=== PATIENT | male | born 1990 | race Caucasian/White ===

== ENCOUNTER 2016-12-05 09:50 | Emergency (ER) | payer BC, OTHER ==
[~2016-12-05] VITALS: Wt 84.1 kg
[2016-12-05] MEDS ORDERED: KETOROLAC 30 MG INJ IV STA (10:53)
[2016-12-05] MEDS ORDERED: SODIUM CHLORIDE 0.9% 1L BAG IV* STA (10:57)
[2016-12-05] MEDS ORDERED: SOD CHLORIDE 0.9% 1,000 ML IV ONE (11:00)
[2016-12-05] MEDS ORDERED: BACITRACIN 0.9 GM OINT TOP ONE (11:00)
[2016-12-05] MEDS ORDERED: LIDOCAINE 4% CR TOP ONE (11:00)
[2016-12-05] MEDS ORDERED: VANCOMYCIN 1 GM (PMX) 250 ML IVPB SCH (11:00)
[2016-12-05] MEDS ORDERED: CEFTRIAXONE 1 GM/50 ML (PMX) 50 ML IVPB ONE (11:00)
--- NOTE | 2016-12-05 11:20 | RADRPT ---
PROCEDURE: Chest Radiograph. CLINICAL INDICATION: Sepsis TECHNIQUE: Single frontal chest radiograph. COMPARISON: None available FINDINGS: The cardiomediastinal silhouette is within normal limits. No infiltrate or effusion is seen. Th e bones are intact. IMPRESSION: 1. Unremarkable chest radiograph. RPTAT: KK .Hugh Galvan MD, Date Time Electronically viewed and signed by .Hugh Galvan MD, on 12/05/2016 11:20 .B/
[2016-12-05] MEDS ORDERED: LIDOCAINE 1% (MPF) 5 ML VIAL SC ONE ×2 (11:30)
[2016-12-05 12:38] LABS: ADD SCAN DIFF NO
[2016-12-05 12:49] LABS: BASOPHILS % 0.2 % (0.0-2.0); HEMATOCRIT 34.4 % (42.0-52.0); HEMOGLOBIN 12.1 g/dl (14.0-18.0); LYMPHOCYTES # 1.6 10^3/ul (0.8-2.9); LYMPHOCYTES % 23.9 % (15.0-51.0); MEAN CORPUSCULAR HEMOGLOBIN 29.2 pg (29.0-33.0); MEAN CORPUSCULAR HGB CONC 35.2 g/dl (32.0-37.0); MEAN CORPUSCULAR VOLUME 82.9 fl (82.0-101.0); MONOCYTE # 0.7 10^3/ul (0.3-0.9); MONOCYTES % 10.8 % (0.0-11.0); NEUTROPHIL # 4.2 10^3/ul (1.6-7.5); NEUTROPHILS % 64.6 % (39.0-77.0); PLATELET COUNT 207 10^3/UL (140-415); RED BLOOD COUNT 4.15 10^6/ul (4.70-6.10); RED CELL DISTRIBUTION WIDTH 11.8 % (11.5-14.5); WHITE BLOOD COUNT 6.5 10^3/ul (4.8-10.8)
[2016-12-05 13:01] LABS: ALANINE AMINOTRANSFERASE 41 IU/L (13-69); ALBUMIN 4.2 g/dl (3.3-4.9); ALBUMIN/GLOBULIN RATIO 0.97; ALKALINE PHOSPHATASE 49 IU/L (42-121); ANION GAP 18 (8-16); ASPARTATE AMINO TRANSFERASE 36 IU/L (15-46); BILIRUBIN,INDIRECT 0.6 mg/dl (0-1.1); BILIRUBIN,TOTAL 0.6 mg/dl (0.2-1.3); BLOOD UREA NITROGEN 12 mg/dl (7-20); CALCIUM 9.3 mg/dl (8.4-10.2); CARBON DIOXIDE 27 mmol/L (21-31); CHLORIDE 101 mmol/L (97-110); CREATININE 0.95 mg/dl (0.61-1.24); GLUCOSE 105 mg/dl (70-220); POTASSIUM 4.1 mmol/L (3.5-5.1); SODIUM 142 mmol/L (135-144); TOTAL PROTEIN 8.5 g/dl (6.1-8.1)
[2016-12-05 13:13] LABS: TROPONIN-I < 0.012 ng/ml (0.00-0.12)
--- NOTE | 2016-12-05 13:19 | RADRPT ---
PROCEDURE: US bilateral upper extremity veins. CLINICAL INDICATION: Bilateral upper extremity pain and swelling. TECHNIQUE: Multiple longitudinal and transverse images of the bilateral upper extremity venous no e was obtained with gibbs scale and color Doppler imaging. COMPARISON: None available FINDINGS: The bilateral internal jugular, subclavian, axillary, brachial, basilic, radial, and ulnar veins are patent. There is normal flow with augmentation and compressibility throughout. There is no thrombu s or occlusion. The right cephalic vein in the upper arm is thrombosed with lack of flow and lack of compressibility . The right cephalic vein in the forearm demonstrates normal flow and compressibility. The left cephalic vein is patent throughout. There is a heterogeneous hypoechoic mass in the left wrist region measuring 1.1 x 2.3 x 3.6 cm. IMPRESSION: 1. Thrombosis of the right cephalic vein in the upper arm. 2. Otherwise normal venous system of both upper extremities. 3. Heterogeneous hypoechoic mass in the left wrist region measuring 1.1 x 2.3 x 3.6 cm. This may be due to a solid mass, complex cyst, hematoma, or abscess. RPTAT: QQ .Sav Pike MD, Date Time Electronically viewed and signed by .Sav Pike MD, on 12/05/2016 13:18 .R/
--- NOTE | 2016-12-05 13:38 | RADRPT ---
PROCEDURE: Forearm radiograph series. CLINICAL INDICATION: Right upper extremity swelling TECHNIQUE: AP and lateral views of the right forearm were obtained. COMPARISON: No prior studies are available for comparison. FINDINGS: There is normal mineralization and alignment of the bones of the right forearm. There is no evidenc e of acute fracture or dislocation. Suboptimally visualized joints appear within normal limits. Th ere is diffuse soft tissue swelling. There is apparent skin defect on the dorsal aspect of the mid forearm. IMPRESSION: 1. Soft tissue swelling and skin defect without evidence of underlying osseous pathology. RPTAT: KK .Hugh Galvan MD, MD Date Time Electronically viewed and signed by .Hugh Galvan MD, MD on 12/05/2016 13:38 .B/
--- NOTE | 2016-12-05 13:39 | RADRPT ---
PROCEDURE: Forearm radiograph series. CLINICAL INDICATION: Left forearm pain and swelling TECHNIQUE: AP and lateral views of the left forearm were obtained. COMPARISON: No prior studies are available for comparison. FINDINGS: There is normal mineralization and alignment of the bones of the left forearm. There is no evidence of acute fracture or dislocation. Suboptimally visualized joints appear within normal limits. The re is diffuse soft tissue swelling with more focal soft tissue swelling on the ventral aspect of the distal forearm.. IMPRESSION: 1. Soft tissue swelling without evidence of underlying osseous pathology. RPTAT: KK .Hugh Galvan MD, MD Date Time Electronically viewed and signed by .Hugh Galvan MD, on 12/05/2016 13:38 .B/
--- NOTE | 2016-12-05 14:07 | ERD ---
ER Documentation Chief Complaint Date/Time DATE: 12/05/16 Chief Complaint Abscesses to bilateral arms HPI The patient is a 26-year-old male with a history of heroin and methamphetamine abuse who presents to the Emergency Department with complaint of swelling and abscesses to his upper extremities. The patient reports that he recently relapsed, and over the past 2 months has been shooting up daily. He admits to regular use of large amounts of heroin and crystal meth, which he states has led to the development of multiple large abscesses to his upper extremities, which he picks at. He notes a history of similar symptoms in the past, at which time he developed significant cellulitis to the upper extremities, and was ultimately hospitalized at [facility] for IV antibiotics and I&D procedures by general surgery. These abscesses too, followed excessive IV drug use. Since, he became clean for 2 years, but ultimately relapsed several months ago. The patient notes that since onset of his abscesses two months ago, he has developed increasing swelling, warmth, erythema and tenderness to his upper extremities. He states that several of the abscess have begun to spontaneously drain, others he "popped". His last use of illicit drugs was last night, as he "didn't want to seem too messed up" upon presentation to the ED today. The patient states that over the past week he has been experiencing intermittent fevers, chills, nausea, and vomiting. He has noted increased swelling and spreading redness to the upper extremities. Otherwise, denies any numbness, paresthesias or weakness of the distal extremities. Denies restricted range of motion. Due to patient's worsening symptoms and presentation, his friends coaxed him into coming to the ED today for evaluation. ROS All systems reviewed and are negative except as per history of present illness. Medications Home Meds No Active Prescriptions or Reported Meds Allergies Allergies: Coded Allergies: No Known Allergy (Unverified , 12/05/16) PMhx/Soc History of Surgery: Yes (RIGHT ORCHIECTOMY) Hx Neurological Disorder: Yes ( PER PATIENT, HE HAD SEIZURES BEFORE) Hx Respiratory Disorders: No Hx Cardiac Disorders: No Hx Psychiatric Problems: No Hx Miscellaneous Medical Probl: Yes ( PER PT,HE HAS CLOT ON RIGHT ARM) Hx Substance Use: Yes Smoking Status: Never smoker Physical Exam Vitals Vital Signs Date Time Temp Pulse Resp B/P Pulse Ox O2 Delivery O2 Flow Rate FiO2 12/05/16 12:23 Nasal Cannula 12/05/16 09:55 98.1 118 20 129/78 97 Physical Exam GENERAL: Well-developed, well-nourished, in no acute distress. HEENT: Head is normocephalic, atraumatic. No scleral pallor or icterus. Pupils equal, round and reactive to light. Extraocular movements intact. Conjunctiva pink. Moist mucous membranes. Clear oropharynx. NECK: Supple. Full range of motion. RESPIRATORY: Lungs are clear to auscultation bilaterally. Equal breath sounds. Normal expiratory effort. CARDIOVASCULAR: Tachycardic. Regular rhythm. S1 and S2 normal. GASTROINTESTINAL: Abdomen is soft, nontender, and nondistended. No guarding, no rebound tenderness. Normal bowel sounds. BACK: No midline tenderness. Normal range of motion. EXTREMITIES: No clubbing or cyanosis. Edema to bilateral upper extremities/ forearms/hands, right greater than left. Multiple skin lesions, scabs, abscesses noted. Normal skin perfusion. Full range of motion of both the upper and lower extremities bilaterally. Muscle tone is normal. Compartments are soft. Distal pulses are palpable, 2+ bilaterally. Capillary refill is less than 2 seconds. NEUROLOGIC: The patient is alert, awake, and oriented x 3. No focal neurologic deficits. Motor and sensation grossly intact. INTEGUMENT: Multiple large abscesses, some spontaneously drainage, some with granulation tissue, some intact and indurated to bilateral upper extremities. Surrounding erythema, warmth, tenderness noted. No crepitus. No bleeding. No current lymphatic streaking. No bullae, vesicles, ulcerations. PSYCHIATRIC: Appropriate; Cooperative. Result Diagram: 12/05/16 1230 12/05/16 1230 Results 24 hrs Laboratory Tests Test 12/05/16 12:30 White Blood Count 6.510^3/ul Red Blood Count 4.1510^6/ul Hemoglobin 12.1g/dl Hematocrit 34.4% Mean Corpuscular Volume 82.9fl Mean Corpuscular Hemoglobin 29.2pg Mean Corpuscular Hemoglobin Concent 35.2g/dl Red Cell Distribution Width 11.8% Platelet Count 77586^3/UL Mean Platelet Volume 10.0fl Neutrophils % 64.6% Lymphocytes % 23.9% Monocytes % 10.8% Eosinophils % 0.0% Basophils % 0.2% Neutrophils # 4.210^3/ul Lymphocytes # 1.610^3/ul Monocytes # 0.710^3/ul Eosinophils # 0.010^3/ul Basophils # 0.010^3/ul Nucleated Red Blood Cells # 0.010^3/ul Sodium Level 142mmol/L Potassium Level 4.1mmol/L Chloride Level 101mmol/L Carbon Dioxide Level 27mmol/L Anion Gap 18 Blood Urea Nitrogen 12mg/dl Creatinine 0.95mg/dl Glucose Level 105mg/dl Lactic Acid Level 1.1mmol/L Calcium Level 9.3mg/dl Total Bilirubin 0.6mg/dl Direct Bilirubin 0.00mg/dl Indirect Bilirubin 0.6mg/dl Aspartate Amino Transf (AST/SGOT) 36IU/L Alanine Aminotransferase (ALT/SGPT) 41IU/L Alkaline Phosphatase 49IU/L Troponin I < 0.012ng/ml Total Protein 8.5g/dl Albumin 4.2g/dl Globulin 4.30g/dl Albumin/Globulin Ratio 0.97 Current Medications Medications (Trade) Dose Ordered Sig/Elizabeth Route PRN Reason Start Time Stop Time Status Last Admin Dose Admin Lidocaine 1 applic 1 applic ONCE ONCE TOP 12/05/16 11:00 12/05/16 11:01 DC Vancomycin HCl 250 ml @ 125 mls/hr ONCE IVPB 12/05/16 11:00 12/05/16 12:59 DC Ceftriaxone Sodium (Rocephin) 50 ml @ 100 mls/hr ONCE ONCE IVPB 12/05/16 11:00 12/05/16 11:29 DC Ketorolac Tromethamine 30 mg 30 mg ONCE STAT IV 12/05/16 10:53 12/05/16 10:56 DC Sodium Chloride (NS) 1,000 ml @ 1,000 mls/hr Q1H ONCE IV 12/05/16 11:00 12/05/16 11:59 DC Bacitracin (Bacitracin Oint (Ud)) 1 applic ONCE ONCE TOP 12/05/16 11:00 12/05/16 11:01 DC Sodium Chloride (NS) 2,610 ml BOLUS OVER 2 HOURS STAT IV* 12/05/16 10:57 12/05/16 10:59 DC Lidocaine (Xylocaine 1% (Mpf)) 5 ml ONCE ONCE SC 12/05/16 11:30 7/20/17 11:34 DC Lidocaine (Xylocaine 1% (Mpf)) 5 ml ONCE ONCE SC 12/05/16 11:30 12/05/16 11:34 DC Procedures/MDM DIAGNOSTIC TESTS AND INTERPRETATION: EKG Reviewed and Interpreted by: Dr. Vasquez EKG Interpretation: Sinus tachycardia. Rate 101 bpm. Normal axis. No ST-segment elevations. No ectopy. PROCEDURE: Chest Radiograph. CLINICAL INDICATION: Sepsis TECHNIQUE: Single frontal chest radiograph. COMPARISON: None available FINDINGS:The cardiomediastinal silhouette is within normal limits. No infiltrate or effusion is seen. The bones are intact. IMPRESSION: 1. Unremarkable chest radiograph. .Hugh Galvan MD, MD Date Time Electronically viewed and signed by .Hugh Galvan MD, MD on 2016 11:20 PROCEDURE: US bilateral upper extremity veins. CLINICAL INDICATION: Bilateral upper extremity pain and swelling. TECHNIQUE: Multiple longitudinal and transverse images of the bilateral upper extremity venous tree was obtained with gibbs scale and color Doppler imaging. COMPARISON: None available FINDINGS: The bilateral internal jugular, subclavian, axillary, brachial, basilic, radial , and ulnar veins are patent. There is normal flow with augmentation and compressibility throughout. There is no thrombus or occlusion. The right cephalic vein in the upper arm is thrombosed with lack of flow and lack of compressibility. The right cephalic vein in the forearm demonstrates normal flow and compressibility. The left cephalic vein is patent throughout. There is a heterogeneous hypoechoic mass in the left wrist region measuring 1.1 x 2.3 x 3.6 cm. IMPRESSION: 1. Thrombosis of the right cephalic vein in the upper arm. 2. Otherwise normal venous system of both upper extremities. 3. Heterogeneous hypoechoic mass in the left wrist region measuring 1.1 x 2.3 x 3.6 cm. This may be due to a solid mass, complex cyst, hematoma, or abscess. .Sav Pike MD, MD Date Time Electronically viewed and signed by .Sav Pike MD, MD on 12/05/2016 13:18 PROCEDURE: Forearm radiograph series. CLINICAL INDICATION: Right upper extremity swelling TECHNIQUE: AP and lateral views of the right forearm were obtained. COMPARISON: No prior studies are available for comparison. FINDINGS: There is normal mineralization and alignment of the bones of the right forearm. There is no evidence of acute fracture or dislocation. Suboptimally visualized joints appear within normal limits. There is diffuse soft tissue swelling. There is apparent skin defect on the dorsal aspect of the mid forearm. IMPRESSION: Soft tissue swelling and skin defect without evidence of underlying osseous pathology. .Hugh Galvan MD, MD Date Time Electronically viewed and signed by .Hugh Galvan MD, MD on 2016 13:38 PROCEDURE: Forearm radiograph series. CLINICAL INDICATION: Left forearm pain and swelling TECHNIQUE: AP and lateral views of the left forearm were obtained. COMPARISON: No prior studies are available for comparison. FINDINGS:There is normal mineralization and alignment of the bones of the left forearm. There is no evidence of acute fracture or dislocation. Suboptimally visualized joints appear within normal limits. There is diffuse soft tissue swelling with more focal soft tissue swelling on the ventral aspect of the distal forearm.. IMPRESSION: Soft tissue swelling without evidence of underlying osseous pathology. .Hugh Galvan MD, MD Date Time Electronically viewed and signed by .Hugh Galvan MD, MD on 2016 13:38 EMERGENCY DEPARTMENT COURSE: The patient's case was reviewed and discussed with ED supervising physician, Dr. Vasquez, who agrees with the plan of care including labs, treatment and advanced imaging as appropriate. The patient was evaluated bedside by Dr. Vasquez, who recommends IV Vancomycin and Rocephin, US Venous Duplex of the upper extremities bilaterally, x-rays of the forearms bilaterally and septic work-up (given presentation and tachycardia). Further, Dr. Vasquez recommends admission. Dr. Vasquez discussed patient case with hospitalist on-call for patient's insurance plan, who accepted care of patient to Med/Surg. IV access noted to be difficult in the ED. PICC line ordered, but pending. EJ to be attempted by ED RN, but patient refused. Patient english- cultured. Toradol, fluids, IV antibiotics ordered for the patient, but unfortunately, the patient decided to refuse any treatment and wanted to leave against medical advice. Discussed at least giving the patient a dose of IM antibiotics in the ED and providing the patient with an rx for oral antibiotics to be taken, but patient refused, insisting that he wants to leave against medical advice. Risks of leaving discussed at length. Patient understands risks , including , permanent disability, amputation, thrombus, embolus, gangrene , necrosis, and still decided to leave. MEDICAL DECISION MAKING: This is a 26-year-old male with multiple large abscess to his upper extremities, with associated swelling and spreading cellulitis. Several of the patient's abscesses have already begun to spontaneously drain, with presence of granulation tissue, but also development of surrounding warmth , swelling, erythema and tenderness. The patient also had a few intact, somewhat indurated abscesses to both upper extremities as well. Additionally, patient was also noted to have a right cephalic vein thrombus. Sepsis protocol initiated. Patient english-cultured, and empiric antibiotics and fluids ordered. However, the patient refused further evaluation and treatment and decided to leave against medical advice. The patient had no altered level of consciousness and no signs of acute intoxication. The patient's judgment capabilities were intact. The patient understands their current condition and treatment and was able to communicate their choices clearly. The patient was heavily counseled that by leaving AMA and refusing further evaluation and treatment, they are putting themselves at risk for permanent disability, necrosis, gangrene, amputation, thrombus, embolus, sepsis, bacteremia, , among other terrible complications. The importance of staying in this medical facility for further management was explained at length. The patient was told that by leaving they are presenting themselves with serious and immediate health risks that may ultimately result in health disabilities, sepsis, and . Despite my many efforts to convince the patient to stay, the patient still decided to leave against medical advice. He was instructed to return to the Emergency Department as soon as possible for further evaluation and management. Again, signs of deteriorating or progressing condition were discussed with the patient at length, and the patient was given strict return precautions for returning to seek medical advice. They were advised that they may return at any time for additional treatment. The patient has the medical decision making capacity and understands the potential consequences of leaving AMA. I answered all the patient's questions and offered him care at any time if he chooses to return. I have also recommended that he follow up with a primary care provider within 24 hours for further evaluation and care. Departure Diagnosis: Primary Impression: Skin abscess Site of cutaneous abscess: extremity Site of cutaneous abscess of extremity: upper extremity Laterality: unspecified laterality Qualified Code: L02.419 - Cutaneous abscess of upper extremity, unspecified laterality Additional Impressions: Cellulitis Site of cellulitis: extremity Site of cellulitis of extremity: upper extremity Laterality: unspecified laterality Qualified Code: L03.119 - Cellulitis of upper extremity, unspecified laterality Acute thrombosis of right cephalic vein Methamphetamine abuse Heroin abuse Condition: Serious Patient Instructions: Abscess Drainage, [place] Form- 1, Cellulitis Additional Instructions: You are leaving AGAINST MEDICAL ADVICE. By doing so you're placing yourself at risk for permanent disability, sepsis, permanent embolus, worsening infection and . Please return to the emergency Department as soon as possible for further evaluation and management. KIM HELTON PA-C Dec 05, 2016 14:07
== END 2016-12-05 14:08 | disposition left against medical advice (07) ==
LOC: FTE 09:50 → E/R 14:08
DX: L02.413 Cutaneous abscess of right upper limb (principal); L02.414 Cutaneous abscess of left upper limb; L03.113 Cellulitis of right upper limb; L03.114 Cellulitis of left upper limb; I82.611 Acute embolism and thrombosis of superficial veins of right upper extremity; F15.10 Other stimulant abuse, uncomplicated; F11.10 Opioid abuse, uncomplicated
CPT/HCPCS: 71010; 73090; 80053; 83605; 84484; 85025; 87040; 93005; 93970; J7030; Z7502

== ENCOUNTER 2016-12-14 03:58 | Emergency (ER) | payer OTHER ==
[~2016-12-14] VITALS: Ht 182.9 cm; Wt 87.5 kg
[2016-12-14 04:04] VITALS: Ht 182.9 cm; Wt 87.5 kg
--- NOTE | 2016-12-14 04:36 | ERD ---
ER Documentation Chief Complaint Date/Time DATE: 12/14/16 TIME: 04:35 Chief Complaint swelling/abscess both arms, current iv drug user HPI Patient is a 26-year-old male who is an IV drug user and states he last used today. He is here because he has an abscess on his right dorsal hand. He has multiple areas of cellulitis on his bilateral upper extremities and is currently being treated with antibiotics were given to him by his primary care doctor. He states that he was here last week and was told he had a blood clot in his right upper extremities and he was concerned and at that time he left AGAINST MEDICAL ADVICE but he came back here because he was worried. ROS All systems reviewed and are negative except as per history of present illness. Medications Home Meds No Active Prescriptions or Reported Meds Allergies Allergies: Coded Allergies: No Known Allergy (Unverified , 12/14/16) PMhx/Soc History of Surgery: Yes (RIGHT ORCHIECTOMY) Hx Neurological Disorder: Yes ( PER PATIENT, HE HAD SEIZURES BEFORE) Hx Respiratory Disorders: No Hx Cardiac Disorders: No Hx Psychiatric Problems: No Hx Miscellaneous Medical Probl: Yes ( PER PT,HE HAS CLOT ON RIGHT ARM) Hx Substance Use: Yes (HEROIN) FmHx Family History: No diabetes Physical Exam Vitals Vital Signs Date Time Temp Pulse Resp B/P Pulse Ox O2 Delivery O2 Flow Rate FiO2 12/14/16 04:04 97.8 81 20 118/88 100 Physical Exam INITIAL VITAL SIGNS: Reviewed by me GENERAL: Awake, alert and oriented x 4, well appearing, nontoxic, speaking in full sentences. No acute distress HEAD: Atraumatic EYES: EOMI. PERRL. NECK: Supple. No masses. Full range of motion. No meningismus. No midline tenderness. RESPIRATORY: Clear to auscultation bilaterally. Symmetric chest wall rise. No wheezing or rales. No accessory muscle use. CV: Regular rate and rhythm. No murmurs, rubs, or gallops. EXTREMITIES: No clubbing or cyanosis. No edema. Moving all extremities normally. BACK: No midline tenderness to palpation. No step-offs. SKIN: Multiple large abscesses, some spontaneously drainage, some with granulation tissue, some intact and indurated to bilateral upper extremities. Surrounding erythema, warmth, tenderness noted. No crepitus. No bleeding. No current lymphatic streaking. No bullae, vesicles, ulcerations. Right hand dorsal surface has abscess approximately 2 cm in diameter with fluctuance and tenderness to palpation and warmth Procedures/MDM Abscess Incision and Drainage with irrigation by me: Location: Right hand dorsal surface Anesthesia: [Local 1% Lidocaine] Technique: [Irrigated. Disrupted loculations w/ instrumentation ] Packing: [None] Complications: [Neurovascularly intact post procedure] 48 hour wound check. Scar minimization instructions given. [ED Ultrasound: Abscess localized by me using concurrent ultrasound guidance and assessment of the anatomy. Real time image archived in the medical record confirms anatomy.] Patient's skin symptoms have stabilized while they have been evaluated in the department and are appropriate for outpatient care and work up. Exam and w/u not consistent w/ sepsis, deep space infection, or foreign body. Patient was also concerned about possible right upper extremity DVT however I reviewed his ultrasound from last week and he has a cephalic thrombosis. I reviewed this with Dr. Montes who explained that this is a superficial vein and therefore it is not a DVT. I counseled the patient on this. She already has appropriate antibiotics for his cellulitis/abscess. Patient counseled regarding my diagnostic impression and care plan. Prior to discharge all questions answered. Pt agrees with treatment plan and understands strict return precautions. Pt is instructed to follow up with primary care provider within 24- 48 hours. Precautionary instructions provided including instructions to return to the ER if not improving or for any worsening or changing symptoms or concerns. Departure Diagnosis: Primary Impression: Abscess Additional Impressions: Heroin abuse Acute thrombosis of right cephalic vein Condition: Stable Patient Instructions: Abscess, Incision And Drainage Additional Instructions: Call your primary care doctor TOMORROW for an appointment during the next 1-2 days.See the doctor sooner or return here if your condition worsens before your appointment time. JALEEL JUDGE PA-C Dec 14, 2016 04:36
[2016-12-14 04:48] VITALS: BP 125/88; PULSE 88; RESP 20
== END 2016-12-14 04:51 | disposition home or self-care (01) ==
LOC: FTE 03:58
DX: L02.511 Cutaneous abscess of right hand (principal); F11.10 Opioid abuse, uncomplicated; I82.601 Acute embolism and thrombosis of unspecified veins of right upper extremity

== ENCOUNTER 2017-01-09 22:45 | Emergency (ER) | payer OTHER ==
[~2017-01-09] VITALS: Ht 182.9 cm; Wt 80.0 kg
[2017-01-09 22:50] VITALS: Ht 182.9 cm; Wt 80.0 kg
--- NOTE | 2017-01-09 23:08 | ERA ---
ER Documentation Chief Complaint Date/Time DATE: 01/09/17 TIME: 23:07 Chief Complaint altered mental status HPI The patient is a 26-year-old male, presenting to the ER because of altered mental status. He was dropped off by his friend to the ER because he took 4 tab of Klonopin 2 mg prior to arrival. He is somnolent but arousable, drooling. He was admitted previously for benzodiazepine withdrawal. He denies headache, neck pain, chest pain, dyspnea, abdominal pain, vomiting, dysuria, diarrhea. He smokes and drinks and does illicit drug Past medical history: History of benzodiazepine addiction Past surgical history: Right orchiectomy ROS All systems reviewed and are negative except as per history of present illness. Medications Home Meds Unable to Obtain Active Prescriptions or Reported Meds Allergies Allergies: Coded Allergies: No Known Allergy (Unverified , 12/14/16) PMhx/Soc History of Surgery: Yes (RIGHT ORCHIECTOMY) Hx Neurological Disorder: Yes ( PER PATIENT, HE HAD SEIZURES BEFORE) Hx Respiratory Disorders: No Hx Cardiac Disorders: No Hx Psychiatric Problems: No Hx Miscellaneous Medical Probl: Yes ( PER PT,HE HAS CLOT ON RIGHT ARM) Hx Substance Use: Yes (HEROIN) Physical Exam Vitals Vital Signs Date Time Temp Pulse Resp B/P Pulse Ox O2 Delivery O2 Flow Rate FiO2 01/10/17 03:30 97.5 53 20 123/83 99 Room Air 01/10/17 01:25 97.5 53 20 129/85 100 Room Air 01/10/17 00:16 55 20 122/86 100 Room Air 01/09/17 22:50 97.5 85 20 126/84 99 Physical Exam Const: No acute distress. Head: Atraumatic. Eyes: Normal Conjunctiva. ENT: Normal External Ears, Nose and Mouth. Neck: Full range of motion. No meningismus. Resp: Clear to auscultation bilaterally. Cardio: Regular rate and rhythm. Abd: Soft, non distended, normal bowel sounds, non tender. Skin: No petechiae or rashes. Back: No midline or flank tenderness. Ext: No cyanosis, or edema. Neur: Awake and alert. No focal deficit Psych: Somnolent Result Diagram: 01/09/17 2335 01/09/17 0456 Results 24 hrs Laboratory Tests Test 01/09/17 23:00 01/09/17 23:20 01/09/17 23:35 Urine Color YELLOW Urine Clarity CLEAR Urine pH 6.0 Urine Specific [place] 1.013 Urine Ketones NEGATIVEmg/dL Urine Nitrite NEGATIVEmg/dL Urine Bilirubin NEGATIVEmg/dL Urine Urobilinogen NEGATIVEmg/dL Urine Leukocyte Esterase NEGATIVELeu/ul Urine Hemoglobin NEGATIVEmg/dL Urine Glucose NEGATIVEmg/dL Urine Total Protein NEGATIVEmg/dl Urine Opiates Screen Positive Urine Barbiturates Negative Urine Amphetamines Screen POSITIVE Urine Benzodiazepines Screen Positive Urine Cocaine Screen Negative Urine Cannabinoids Negative White Blood Count 7.010^3/ul Red Blood Count 4.5010^6/ul Hemoglobin 12.7g/dl Hematocrit 37.2% Mean Corpuscular Volume 82.7fl Mean Corpuscular Hemoglobin 28.2pg Mean Corpuscular Hemoglobin Concent 34.1g/dl Red Cell Distribution Width 12.2% Platelet Count 40095^3/UL Mean Platelet Volume 10.2fl Neutrophils % 68.6% Lymphocytes % 23.1% Monocytes % 7.9% Eosinophils % 0.0% Basophils % 0.1% Nucleated Red Blood Cells % 0.0/100WBC Neutrophils # (Manual) 4.810^3/ul Lymphocytes # 1.610^3/ul Monocytes # 0.610^3/ul Eosinophils # 0.010^3/ul Basophils # 0.010^3/ul Nucleated Red Blood Cells # 0.010^3/ul Sodium Level 142mmol/L Potassium Level 3.6mmol/L Chloride Level 101mmol/L Carbon Dioxide Level 28mmol/L Anion Gap 17 Blood Urea Nitrogen 12mg/dl Creatinine 0.78mg/dl Glucose Level 93mg/dl Calcium Level 9.6mg/dl Total Bilirubin 0.2mg/dl Direct Bilirubin 0.00mg/dl Indirect Bilirubin 0.2mg/dl Aspartate Amino Transf (AST/SGOT) 35IU/L Alanine Aminotransferase (ALT/SGPT) 57IU/L Alkaline Phosphatase 56IU/L Total Protein 7.9g/dl Albumin 3.9g/dl Globulin 4.00g/dl Albumin/Globulin Ratio 0.97 Salicylates Level < 1.0mg/dl Acetaminophen Level < 10.0ug/ml Ethyl Alcohol Level < 10.0mg/dl Current Medications Medications (Trade) Dose Ordered Sig/Elizabeth Route PRN Reason Start Time Stop Time Status Last Admin Dose Admin Sodium Chloride (NS) 1,000 ml @ 1,000 mls/hr Q1H STAT IV 01/09/17 23:13 01/10/17 00:12 DC 01/09/17 23:30 Ondansetron HCl (Zofran Inj) 4 mg ONCE STAT IV 01/09/17 23:13 01/09/17 23:17 DC 01/09/17 23:30 Naloxone HCl (Narcan) 2 mg ONCE ONCE IV 01/09/17 23:30 01/09/17 23:31 DC 01/09/17 23:29 Lorazepam 2 mg 2 mg Q6H PRN IV agitation 01/10/17 04:30 Multivitamins/ Thiamine HCl/ Folic Acid/Sodium Chloride (Mvi Adult/ Vitamin B1/Folic Acid/NS) 1,011.2 ml @ 125 mls/ hr DAILY@09 IVPB 01/10/17 09:00 Ondansetron HCl (Zofran Inj) 4 mg Q6H PRN IV NAUSEA AND/OR VOMITING 01/10/17 04:30 Famotidine (Pepcid Iv) 20 mg BID IV 01/10/17 09:00 Procedures/[place] [address] Radiology Main Line: [phone] DIAGNOSTIC IMAGING REPORT Patient: GERSON YANES : 1990 Age: 26 Sex: M MR #: [id number] DOS: 01/09/17 2313 Ordering MD: THOMAS WOODS MD Location: E/R Room/Bed: PROCEDURE: XR Chest. CLINICAL INDICATION: Altered mental status TECHNIQUE: AP Portable chest. COMPARISON: 12/05/2016 FINDINGS: The cardiomediastinal silhouette is normal. The lungs are clear. The osseous structures are unremarkable. IMPRESSION: No acute findings. RPTAT: HIKT .Shiva Serna MD, MD Date Time Electronically viewed and signed by .Shiva Serna MD, on 01/10/2017 01:02 .T/ CC: THOMAS WOODS MD [place] [address] Radiology Main Line: [phone] DIAGNOSTIC IMAGING REPORT Patient: GERSON YANES : 1990 Age: 26 Sex: M MR #: [id number] DOS: 01/10/17 0217 Ordering MD: THOMAS WOODS MD Location: E/R Room/Bed: PROCEDURE: CT Brain without contrast. CLINICAL INDICATION: Altered level of consciousness TECHNIQUE: Axial images from the skull base through the vertex without IV contrast. Multiplanar reformatted images were made. Images were reviewed on a PACS workstation. The CTDIvol is 45.01 mGy and the DLP is 720.23 mGycm. One or more of the following dose reduction techniques were used: automated exposure control, adjustment of the mA and/or kV according to patient size, or use of iterative reconstruction technique. COMPARISON: None. FINDINGS: The ventricles and cisterns are normal for age. There is no evidence for territorial infarction or intracranial hemorrhage. No mass or midline shift is seen. No extra-axial fluid collection is seen. The visualized paranasal sinuses and mastoids are clear. IMPRESSION: No definite acute intracranial abnormality. RPTAT: HLBE Physician Zeus Date Time Electronically viewed and signed by Samreen Johnson Physician on 01/10/2017 03 :19 LE/ CC: THOMAS WOODS MD MEDICAL MAKING DECISION: The patient is a 26-year-old male, presenting with acute benzodiazepine abuse, opioid abuse. He was treated with Narcan 2 mg IV for acute opioid abuse, 1 L normal saline for acute dehydration, Zofran 4 mg IV for nausea with good response. The differential diagnoses considered include but are not limited to medication non-compliance, alcohol intoxication or withdrawal, drug intoxication or withdrawal, endocrine disorder, trauma, CVA, tumor, metabolic encephalopathy, septic encephalopathy. Departure Diagnosis: Primary Impression: Benzodiazepine abuse Additional Impressions: Opioid abuse Anemia Condition: Stable Comments I discussed the findings with the patient. I discussed the patient with the on- call hospitalist Dr. Flowers at 2:20 AM who was made aware of the lab, the treatment , the patient condition. The patient is admitted to telemetry for 24 hour observation The patient later felt better, able to ambulate independently without any difficulty, signed out AGAINST MEDICAL ADVICE The patient signed out AGAINST MEDICAL ADVICE. Risks, benefits, alternatives were explained to the patient. Risks include but not limited to and permanent disability The patient's blood pressure was elevated (>120/80) but appears stable without evidence of hypertension emergency or urgency. The patient was counseled about the risks of hypertension and urged to pursue outpatient monitoring and therapy within a week with their primary care physician. THOMAS WOODS MD Jan 09, 2017 23:05
[2017-01-09] MEDS ORDERED: ONDANSETRON 4 MG INJ IV STA (23:13)
[2017-01-09] MEDS ORDERED: SOD CHLORIDE 0.9% 1,000 ML IV STA (23:13)
[2017-01-09] MEDS ORDERED: NALOXONE 2 MG SYG IV ONE (23:30)
[2017-01-10 00:03] LABS: BASOPHILS % 0.1 % (0.0-2.0); HEMATOCRIT 37.2 % (42.0-52.0); HEMOGLOBIN 12.7 g/dl (14.0-18.0); LYMPHOCYTES # 1.6 10^3/ul (0.8-2.9); LYMPHOCYTES % 23.1 % (15.0-51.0); MEAN CORPUSCULAR HEMOGLOBIN 28.2 pg (29.0-33.0); MEAN CORPUSCULAR HGB CONC 34.1 g/dl (32.0-37.0); MEAN CORPUSCULAR VOLUME 82.7 fl (82.0-101.0); MEAN PLATELET VOLUME 10.2 fl (7.4-10.4); MONOCYTE # 0.6 10^3/ul (0.3-0.9); MONOCYTES % 7.9 % (0.0-11.0); NEUTROPHILS % 68.6 % (39.0-77.0); PLATELET COUNT 175 10^3/UL (140-415); RED CELL DISTRIBUTION WIDTH 12.2 % (11.5-14.5)
[2017-01-10 00:14] LABS: ADD UMIC NO; UR ASCORBIC ACID NEGATIVE (NEGATIVE); UR BILIRUBIN (Dip) NEGATIVE (NEGATIVE); UR BLOOD (Dip) NEGATIVE (NEGATIVE); UR CLARITY CLEAR (CLEAR); UR COLOR YELLOW (YELLOW); UR GLUCOSE (Dip) NEGATIVE (NEGATIVE); UR KETONES (Dip) NEGATIVE (NEGATIVE); UR LEUKOCYTE ESTERASE (Dip) NEGATIVE Leu/ul (NEGATIVE); UR NITRITE (Dip) NEGATIVE (NEGATIVE); UR SPECIFIC GRAVITY (Dip) 1.013 (1.003-1.030); UR TOTAL PROTEIN (Dip) NEGATIVE (NEGATIVE); UR UROBILINOGEN (Dip) NEGATIVE (NEGATIVE)
[2017-01-10 00:26] LABS: ALANINE AMINOTRANSFERASE 57 IU/L (13-69); ALBUMIN 3.9 g/dl (3.3-4.9); ALBUMIN/GLOBULIN RATIO 0.97; ALKALINE PHOSPHATASE 56 IU/L (42-121); ANION GAP 17 (8-16); ASPARTATE AMINO TRANSFERASE 35 IU/L (15-46); BILIRUBIN,INDIRECT 0.2 mg/dl (0-1.1); BILIRUBIN,TOTAL 0.2 mg/dl (0.2-1.3); BLOOD UREA NITROGEN 12 mg/dl (7-20); CALCIUM 9.6 mg/dl (8.4-10.2); CARBON DIOXIDE 28 mmol/L (21-31); CHLORIDE 101 mmol/L (97-110); CREATININE 0.78 mg/dl (0.61-1.24); GLUCOSE 93 mg/dl (70-220); POTASSIUM 3.6 mmol/L (3.5-5.1); SODIUM 142 mmol/L (135-144); TOTAL PROTEIN 7.9 g/dl (6.1-8.1)
--- NOTE | 2017-01-10 01:03 | RADRPT ---
PROCEDURE: XR Chest. CLINICAL INDICATION: Altered mental status TECHNIQUE: AP Portable chest. COMPARISON: 12/05/2016 FINDINGS: The cardiomediastinal silhouette is normal. The lungs are clear. The osseous structures are unrema rkable. IMPRESSION: No acute findings. RPTAT: HIKT .Shiva Serna MD, MD Date Time Electronically viewed and signed by .Shiva Serna MD, MD on 01/10/2017 01:02 .T/
[2017-01-10 01:32] LABS: ACETAMINOPHEN < 10.0 ug/ml (10.0-30.0); ETHANOL < 10.0 mg/dl; SALICYLATE < 1.0 mg/dl (5.0-30.0)
[2017-01-10 02:19] LABS: BARBITURATES Negative (NEGATIVE); BENZODIAZEPINES Positive (NEGATIVE); CANNABINOIDS Negative (NEGATIVE); COCAINE Negative (NEGATIVE); OPIATES Positive (NEGATIVE)
--- NOTE | 2017-01-10 03:20 | RADRPT ---
PROCEDURE: CT Brain without contrast. CLINICAL INDICATION: Altered level of consciousness TECHNIQUE: Axial images from the skull base through the vertex without IV contrast. Multiplanar r eformatted images were made. Images were reviewed on a PACS workstation. The CTDIvol is 45.01 mGy and the DLP is 720.23 mGycm. One or more of the following dose reduction techniques were used: auto mated exposure control, adjustment of the mA and/or kV according to patient size, or use of iterativ e reconstruction technique. COMPARISON: None. FINDINGS: The ventricles and cisterns are normal for age. There is no evidence for territorial infarction or intracranial hemorrhage. No mass or midline shift is seen. No extra-axial fluid collection is seen . The visualized paranasal sinuses and mastoids are clear. IMPRESSION: No definite acute intracranial abnormality. RPTAT: HLBE Physician Zeus Date Time Electronically viewed and signed by Physician Zeus on 01/10/2017 03:19 FINN/
[2017-01-10 03:30] VITALS: BP 123/83; PULSE 53; RESP 20; TEMP 97.5
[2017-01-10] MEDS ORDERED: LORAZEPAM 2 MG INJ IV PRN (04:30)
[2017-01-10] MEDS ORDERED: ONDANSETRON 4 MG INJ IV PRN (04:30)
[2017-01-10] MEDS ORDERED: FAMOTIDINE 20 MG INJ IV SCH (09:00)
[2017-01-10] MEDS ORDERED: MULTIVITAMINS 10 ML, THIAMINE 100 MG, FOLIC ACID 1 MG in SOD CHLORIDE 0.9% 1,000 ML IVPB SCH (09:00)
[2017-01-10] MEDS ORDERED: ACETAMINOPHEN 325 MG TAB ONE (14:40)
--- NOTE | 2017-01-11 14:24 | HP ---
DATE OF ADMISSION: 01/09/2017 PRESENTING COMPLAINT: Altered mental status. HISTORY OF PRESENT ILLNESS: Initially, I am unable to get much in terms of history from this patient; however, my understanding is that the patient was dropped off in the emergency room by his friend and he was thought to have been abusing drugs and had become altered and somewhat unresponsive. However, when he arrived in the emergency room the patient was combative, confused and was requiring restraints and at this time, he is also unable to give me history. He is calmer now, but he is confused. He does not even know where he is or his name. He has bloodshot eyes. PAST MEDICAL HISTORY: Per report, the patient has a history of seizures and clots in his right arm. PAST SURGICAL HISTORY: Per report, he has had a right orchiectomy in the past. ALLERGIES: NO KNOWN DRUG ALLERGIES. SOCIAL HISTORY: The patient in the past, but his current urine toxicology screen is positive for amphetamines and benzodiazepines as well as opiates. A more detailed history will be obtained as the patient's mentation improves. FAMILY HISTORY: Unobtainable. HOME MEDICATIONS: None that we know so far. PHYSICAL EXAMINATION: VITAL SIGNS: Temperature 97.5, pulse 53, respirations 20, blood pressure 123/83. Saturation 99 percent on room air. GENERAL: The patient is still confused, but is calm at this time. Has restraints in both upper as well as both lower extremities. HEENT: Head normocephalic. The patient has blood shot eyes. Pupils are equal and reactive. Mucous membranes are moist. Posterior pharynx is not assessed due to the patient's refusal to open his mouth. NECK: Supple. CHEST: Clear. CARDIAC: S1, S2. No murmurs. ABDOMEN: Soft, nontender, nondistended. Normoactive bowel sounds. EXTREMITIES: No lower extremity edema. NEUROLOGIC: He is altered, but no gross focal deficits. SKIN: Does not show any gross abnormalities. LABORATORY DATA: As mentioned earlier, his toxicology screen was positive for amphetamines, opiates, as well as benzodiazepines. He also has a hyperchromic chronic anemia, but his chemistry was normal as was a urinalysis. A chest x-ray did not show any acute findings and a CT scan of the brain also shows no acute findings. An EKG also showed no acute evidence of ischemia. ASSESSMENT AND PLAN: A 26-year-old male who may have a history of seizure disorder managed by the followin. Altered mentation, which improved slightly with therapy. Acute toxic encephalopathy, secondary to number 2. 2. Multi-substance abuse. 3. History of seizure disorder. PLAN: The plan is to admit the patient and hydrate. The patient requires close monitoring. We will provide seizure as well as fall precautions and wait for the patient's mentation to improve. In the meantime, I will provide supportive care. The patient will need to be , counseled on the need to abstain from substance abuse prior to discharge. Prophylaxis not indicated. Dictated By: Nallely Flowers MD /mallory/anali /Document#: [id number]
--- NOTE | 2017-01-11 20:29 | EN ---
Date/Time of Note Date/Time of Note DATE: 01/11/17 TIME: 20:28 Event Note Medicine Medicine Event Note Discharge summary I was told that the patient left AGAINST MEDICAL ADVICE about an hour after I completed my evaluation. Hence no instructions or prescriptions were given. СВЕТЛАНА RUIZ Jan 11, 2017 20:29
== END 2017-01-10 05:30 | disposition left against medical advice (07) ==
LOC: E/R 22:45
DX: F13.10 Sedative, hypnotic or anxiolytic abuse, uncomplicated (principal); F11.10 Opioid abuse, uncomplicated; D64.9 Anemia, unspecified; R40.2132 Coma scale, eyes open, to sound, at arrival to emergency department; R40.2242 Coma scale, best verbal response, confused conversation, at arrival to emergency department; R40.2362 Coma scale, best motor response, obeys commands, at arrival to emergency department
CPT/HCPCS: 70450; 71010; 80053; 80306; 80307; 81003; 85025; 93005; 96374; 96375; J2310; J2405; J7030; P9612; Z7502; Z7610; J3411